=== PATIENT | female | born 1955 ===

== ENCOUNTER 2019-07-19 08:46 | Day surgery (SDC) | payer MEDICARE, BC ==
[2019-07-19] MEDS ORDERED: Midazolam* 1 MG/ML 2 ML VIAL (2 MG) ONE ×2 (10:34→11:09)
--- NOTE | 2019-07-19 12:03 | OP ---
DATE OF OPERATION: 07/19/19 [facility] DATE OF : 51 SURGEON: Alphonse Rios MD PREOPERATIVE DIAGNOSIS: Cataract, right eye. POSTOPERATIVE DIAGNOSIS: Cataract, right eye. OPERATIVE PROCEDURE: Extracapsular cataract extraction with intraocular lens implant, right eye. DESCRIPTION OF PROCEDURE: The patient was brought to the operating room after being given 1/2% Alcaine with epinephrine drops in the preoperative area. The eye was prepped and draped in the usual sterile fashion. Sterile drape and eyelid speculum were placed. Again, topical 1/2% Alcaine with epinephrine was given. A paracentesis incision was made at the 9 o'clock position with the No.75 blade. Clear cornea incision 2.2 x 2.2-mm was created at the 12 o'clock position starting at the anterior limbus using the 2.2-mm keratome. The anterior chamber was irrigated with 0.4 mL of 1% non-preservative intracameral lidocaine and filled with DisCoVisc. A capsulorrhexis was completed using the cystotome and the Utrata forceps. Hydrodissection was performed with balanced salt solution. The lens nucleus was removed with the Phacoemulsification handpiece without incident. Cortex was removed with the irrigation-aspiration handpiece. The capsular bag was re-inflated using DisCoVisc and an [id number] 16 implant was inserted with the shooter. The irrigation-aspiration handpiece was used to remove all residual DisCoVisc. The eye was refilled with balanced salt solution and the wound checked and found to be watertight. Topical Maxitrol drops were given. [id number]/[facility] #: [id number] [facility]ENTER[facility] Luis
[2019-07-19 12:17] VITALS: BP 104/65
[2019-07-19] MEDS ORDERED: Povidone Iodine 5% OPTH* 30 ML BTL ONE (12:22)
[2019-07-19] MEDS ORDERED: Ketorolac 0.5% OPHTH (NF) 0.5 % 5 ML BTL ONE (12:22)
[2019-07-19] MEDS ORDERED: Lidocaine 2% w/ EPI 1:200,000* 20 ML SDV VIAL ONE (12:22)
[2019-07-19] MEDS ORDERED: Proparacaine 0.5% OPHTH.SOL* 15 ML BTL ONE (12:22)
[2019-07-19] MEDS ORDERED: Phenylephrine OPHTH SOL 2.5%* 2 ML ONE (12:22)
[2019-07-19] MEDS ORDERED: Cyclopentolate 1% OPTH.SOL* 2 ML BTL ONE (12:22)
[2019-07-19] MEDS ORDERED: Lidocaine 1% MPF ** 5 ML VIAL ONE (12:22)
[2019-07-19] MEDS ORDERED: Neomycin/Polymy/Dex OPTH.SUSP* MAXITROL 0.1% 5 ML ONE (12:22)
== END 2019-07-19 12:03 | disposition home or self-care (01) ==
LOC: OREAST 08:46
PROVIDERS: ATTEND Specialist
DX: H25.041 Posterior subcapsular polar age-related cataract, right eye (principal); Z21 Asymptomatic human immunodeficiency virus [HIV] infection status; I10 Essential (primary) hypertension
CPT/HCPCS: A9270-GY; J2250; V2632

== ENCOUNTER 2019-07-26 10:04 | Day surgery (SDC) | payer MEDICARE, BC ==
[~2019-07-26 10:04] MED LIST: Acetaminophen TAB* 325 MG PO PRN; Buffered Lidocaine 1% SYRIN* 1 ML/SYRINGE INTRADERM ONE
[2019-07-26] MEDS ORDERED: Proparacaine 0.5% OPHTH.SOL* 15 ML BTL ONE (10:37)
[2019-07-26] MEDS ORDERED: Lidocaine 2% w/ EPI 1:200,000* 20 ML SDV VIAL ONE (10:37)
[2019-07-26] MEDS ORDERED: Neomycin/Polymy/Dex OPTH.SUSP* MAXITROL 0.1% 5 ML ONE (10:37)
[2019-07-26] MEDS ORDERED: Povidone Iodine 5% OPTH* 30 ML BTL ONE (10:37)
[2019-07-26] MEDS ORDERED: Phenylephrine OPHTH SOL 2.5%* 2 ML ONE (10:37)
[2019-07-26] MEDS ORDERED: Cyclopentolate 1% OPTH.SOL* 2 ML BTL ONE (10:37)
[2019-07-26] MEDS ORDERED: Ketorolac 0.5% OPHTH (NF) 0.5 % 5 ML BTL ONE (10:37)
[2019-07-26] MEDS ORDERED: Lidocaine 1% MPF ** 5 ML VIAL ONE (10:37)
[2019-07-26] MEDS ORDERED: acetaZOLAMIDE TAB* 250 MG ONE (10:37)
[2019-07-26] MEDS ORDERED: Midazolam* 1 MG/ML 5 ML VIAL (5 MG) ONE (12:21)
[2019-07-26] MEDS ORDERED: fentaNYL* 50 MCG/ML 2 ML VIAL (100 MCG VIAL) ONE (12:51)
[2019-07-26 13:36] VITALS: BP 108/62
--- NOTE | 2019-07-26 22:39 | OP ---
DATE OF OPERATION: 07/26/19 - [facility] DATE OF : 51 SURGEON: Alphonse Rios M.D. PREOPERATIVE DIAGNOSIS: Cataract, left eye. POSTOPERATIVE DIAGNOSIS: Cataract, left eye. OPERATIVE PROCEDURE: Extracapsular cataract extraction with intraocular lens implant, left eye. DESCRIPTION OF PROCEDURE: The patient was brought to the operating room after being given 1/2% Alcaine with epinephrine drops in the preoperative area. The eye was prepped and draped in the usual sterile fashion. Sterile drape and eyelid speculum were placed. Again, topical 1/2% Alcaine with epinephrine was given. A paracentesis incision was made at the 3 o'clock position with the No.75 blade. Clear cornea incision 2.2 x 2.2-mm was created at the 6 o'clock position starting at the anterior limbus using the 2.2-mm keratome. The anterior chamber was irrigated with 0.4 mL of 1% non-preservative intracameral lidocaine and filled with DisCoVisc. A capsulorrhexis was completed using the cystotome and the Utrata forceps. Hydrodissection was performed with balanced salt solution. The lens nucleus was removed with the Phacoemulsification handpiece without incident. Cortex was removed with the irrigation-aspiration handpiece. The capsular bag was re-inflated using DisCoVisc and an SN60WF 16.5 implant was inserted with the shooter. Pupil was 3.5 mm, so a Malyugin ring was used to dilate the pupil prior to capsulorrhexis, removed after insertion of the lens. The irrigation-aspiration handpiece was used to remove all residual DisCoVisc. The eye was refilled with balanced salt solution and the wound checked and found to be watertight. Topical Maxitrol drops were given. Indication for complex cataract surgery: Pupillary abnormalities requiring pupil dilation device. [id number]/[facility] #: [id number] [facility] SYSTEMJos[facility] Luis
== END 2019-07-26 13:45 | disposition home or self-care (01) ==
LOC: OREAST 10:04
PROVIDERS: ATTEND Specialist
DX: H25.042 Posterior subcapsular polar age-related cataract, left eye (principal); Z83.511 Family history of glaucoma; I10 Essential (primary) hypertension; Z21 Asymptomatic human immunodeficiency virus [HIV] infection status
CPT/HCPCS: A9270-GY; J2250; J3010; V2632